=== PATIENT | female | born 1950 | race Hispanic/Latino ===

== ENCOUNTER 2019-02-08 09:46 | Outpatient (CLI) | payer BC ==
--- NOTE | 2019-02-08 11:02 | XRay Report ---
XR shoulder 2+V LT INDICATION / CLINICAL INFORMATION: M25.511 PAIN IN RIGHT SHOULDER. COMPARISON: None available. FINDINGS: BONES/JOINT(S): There is a moderately displaced chronic appearing fracture of the surgical neck and g reater tuberosity of the proximal right humerus with lateral apex angulation. 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 SOFT TISSUES: No significant abnormality. ADDITIONAL FINDINGS: None. Signer Name: Ric Lora MD Signed: 02/08/2019 10:57 AM Workstation Name: [id number]
== END 2019-02-08 09:47 | disposition home or self-care (01) ==
LOC: XRAY 09:46
PROVIDERS: ATTEND Orthopaedic Surgery
DX: M19.012 Primary osteoarthritis, left shoulder (principal); J44.9 Chronic obstructive pulmonary disease, unspecified